=== PATIENT | male | born 1955 | race Caucasian/White ===

== ENCOUNTER → 2016-09-10 | Outpatient (CLI) | payer BC ==
--- NOTE | 2016-09-10 15:36 | DIAGNOSTIC IMAGING REPORT ---
MRI OF THE BRAIN WITHOUT IV CONTRAST CLINICAL HISTORY: Headaches. Sella turcica syndrome. COMPARISON STUDY: No priors. TECHNIQUE: MRI of the brain was performed utilizing various T1 and T2-weighted sequences in the axial, sagittal, and coronal planes. IV contrast was not administered for this examination. The patient was premedicated for claustrophobia. The examination is severely degraded by motion artifact and open MRI technique. The patient declined further imaging. FINDINGS: Brain parenchyma: The brain parenchyma is normal in appearance. There is no hemorrhage or mass effect. There is no restricted diffusion to suggest acute ischemia. There is questionable abnormal soft tissue identified in the region of the left cavernous sinus, possibly around the left carotid artery. This is best seen on high-resolution sagittal image #9, but is difficult to assessed due to significant motion artifact. Lomeli-white matter differentiation is preserved. No extra-axial fluid collection is seen. The cerebellar tonsils are normal in configuration. Ventricles, sulci, and cisterns: Normal in configuration. Pituitary and sella: Grossly unremarkable. Intracranial vasculature: Normal flow voids are maintained at the skull base. Orbits: The bony orbits are grossly intact. Orbital contents are normal in appearance. Sinuses and mastoids: Clear. Calvarium: Unremarkable. Cervical cord: Partially visualized cervical spinal cord is normal in morphology and signal intensity. IMPRESSION: 1. Severely motion compromised examination with no obvious acute intracranial abnormality. 2. There is questionable abnormal or at least asymmetric soft tissue within the region of the left cavernous sinus and possibly around the left internal carotid artery. This may simply be related to motion artifact. A mass lesion is not excluded. Follow-up with a contrast enhanced pituitary protocol MRI is recommended for reassessment. 3. The pituitary and sella are grossly unremarkable as visualized but not well evaluated. Electronically signed by: Emil Patel M.D. 09/10/2016 3:35 PM Dictated Date/Time: 09/10/2016 3:24 PM
== END | disposition home or self-care (01) ==
LOC: C.OPENMRI 14:21
PROVIDERS: ATTEND Family Medicine
DX: E23.6 Other disorders of pituitary gland (principal)

== ENCOUNTER → 2016-10-24 | Outpatient (CLI) | payer BC ==
[~2016-10-24] MED LIST: GADAVIST IV PRN
--- NOTE | 2016-10-24 17:02 | DIAGNOSTIC IMAGING REPORT ---
MRI BRAIN COMBO FOR PITUITARY HISTORY: Abnormal brain MRI. Follow-up. TECHNIQUE: Multiplanar multisequence MRI of the brain and pituitary gland was performed both before and after the intravenous administration of contrast. COMPARISON STUDY: Brain MRI 09/10/2016. FINDINGS: There is confirmation of the 2.0 x 1.7 x 1.4 cm slightly T2 hyperintense, T1 hypointense enhancing mass within the left cavernous sinus. This encases the cavernous portion of the left internal carotid artery and results in slight narrowing of the artery. This also appears to slightly displace the pituitary gland and pituitary stalk to the right. This does not appear to invade into Meckel's cave. This lesion results in expansion but does not clearly invade through the posterior wall of the sphenoid sinus. The ventricles and sulci are within normal limits. There is no hematoma, midline shift or acute infarct. Paranasal sinuses and mastoid air cells are clear. IMPRESSION: A 2.0 x 1.7 x 1.4 cm enhancing mass within the left cavernous sinus as described above. This favors a meningioma. A pituitary macroadenoma could also have a similar but is considered less likely. Electronically signed by: Prem Zuniga M.D. 10/24/2016 5:01 PM Dictated Date/Time: 10/24/2016 4:57 PM
== END | disposition home or self-care (01) ==
LOC: C.MRI 15:28
PROVIDERS: ATTEND Physician Assistant Medical
DX: E23.6 Other disorders of pituitary gland (principal)